=== PATIENT | female | born 1935 ===

== ENCOUNTER → 2020-08-11 | Outpatient (CLI) | payer OTHER ==
[~2020-08-11] MED LIST: ASPI81EC PO; ATOR20 PO; DIPH50 PO; IBUP400 PO
== END | disposition home or self-care (01) ==
LOC: LAB 07:47 → LAB SHORT 07:47
DX: L57.0 Actinic keratosis (principal); L08.89 Other specified local infections of the skin and subcutaneous tissue
CPT/HCPCS: 88305